=== PATIENT | female | born 1935 | race Hispanic/Latino ===

== ENCOUNTER 2017-01-21 12:06 | Emergency (ER) | payer MEDICARE ==
--- NOTE | 2017-01-21 13:27 | Emergency Department Report ---
HPI - General Chief Complaint: Extremity Problem,Nontraumatic Time Seen by Provider: 01/21/17 12:54 - HPI HPI: This is a 81-year-old female who presents to the emergency department from home by EMS with complaint of right hip pain and right leg pain. This been going on for several weeks if not months but worsened the last few days. The patient lives at home alone, using a cane/walker to get around. However the patient says that lately the pain is so excruciating that she does not want to get up and move around. She has a history of right hip [place]. Patient says that her [id number] took her to see some physician a few weeks ago and she was diagnosed with a stress fracture, but the area is unknown. She takes oxycodone for chronic back pain and has been taking this for hip with some relief. She has appointment with physician on the of this month but she is unsure whether his primary care or an orthopedist. She has a history of arthritis, COPD, hypertension. No recent travel. Denies any recent falls. ED Past Medical Hx - Past Medical History Previous Medical History?: Yes Hx Hypertension: Yes Hx Congestive Heart Failure: No Hx Diabetes: No Hx Renal Disease: No Hx Arthritis: Yes Hx Asthma: No Hx COPD: Yes Hx HIV: No Additional medical history: chronic back pain - Surgical History Past Surgical History?: Yes Hx Pacemaker: No Hx Appendectomy: Yes Additional Surgical History: Back surgery. R hip. Hysterectomy - Social History Smoking Status: Never Smoker Substance Use Type: None - Medications Home Medications: Home Medications Medication Instructions Recorded Confirmed Last Taken Type Aspirin [Aspirin TAB] 325 mg PO QDAY #30 tablet 09/25/16 01/21/17 Unknown Rx Celecoxib [celeBREX] 100 mg PO BID #60 capsule 09/25/16 01/21/17 Unknown Rx amLODIPine [Norvasc] 10 mg PO Q24H #60 tablet 09/25/16 01/21/17 Unknown Rx HYDROcodone/APAP 10-325 [[place] 1 each PO Q6H PRN #15 tablet 12/27/16 01/21/17 Unknown Rx 10-325 mg TAB] ED Review of Systems ROS: Stated complaint: RT HIP PAIN Other details as noted in HPI Comment: All other systems reviewed and negative Constitutional: denies: chills, fever Eyes: denies: eye pain, eye discharge, vision change ENT: denies: ear pain, throat pain Respiratory: denies: cough, shortness of breath, wheezing Cardiovascular: denies: chest pain, palpitations Gastrointestinal: denies: abdominal pain, nausea, diarrhea Genitourinary: denies: urgency, dysuria, discharge Musculoskeletal: arthralgia. denies: back pain Skin: denies: rash, lesions Neurological: denies: headache, weakness, paresthesias Physical Exam - Physical Exam Vital Signs: Vital Signs 01/21/17 01/21/17 01/21/17 12:21 12:30 12:38 Temperature 98.2 F Pulse Rate 70 Respiratory 17 Rate Blood Pressure 187/60 Blood Pressure 187/60 [Right] O2 Sat by Pulse 96 94 96 Oximetry Physical Exam: GENERAL: The patient is well-developed well-nourished. HEENT: Normocephalic. Atraumatic. Extraocular motions are intact. Patient has moist mucous membranes. Pupils equal reactive to light bilaterally. NECK: Supple. Trachea is midline. CHEST/LUNGS: Clear to auscultation. There is no respiratory distress noted. HEART/CARDIOVASCULAR: Regular. There is no tachycardia. There is no gallop rub or murmur. ABDOMEN: Abdomen is soft, nontender. Patient has normal bowel sounds. There is no abdominal distention. SKIN: Warm and dry. NEURO: The patient is awake, alert, and oriented. The patient is cooperative. The patient has no focal neurologic deficits. The patient has normal speech. MUSCULOSKELETAL: Tenderness to palpation to the right lateral thigh and hip but no obvious deformity. There is no limitation range of motion. There is no evidence of acute injury. ED Course Vital Signs 01/21/17 01/21/17 01/21/17 12:21 12:30 12:38 Temperature 98.2 F Pulse Rate 70 Respiratory 17 Rate Blood Pressure 187/60 Blood Pressure 187/60 [Right] O2 Sat by Pulse 96 94 96 Oximetry ED Medical Decision Making - Lab Data Result diagrams: 01/21/17 14:20 01/21/17 14:20 - Radiology Data Radiology results: report reviewed, image reviewed interpreted by me: X-ray of the right hip does not show any fracture, dislocation or any acute process. X-ray right femur does not show any fracture, dislocation or any acute process. Right lower extremity venous Doppler is negative for any signs of DVT. - Medical Decision Making 81-year-old female presents to the emergency department with acute on chronic right hip and upper leg pain. There is been no trauma. Patient lives alone and has been having increased pain with ambulation but has been able to do her ADLs. X-rays were done of the hip and femur as she says there was some recent history of a stress fracture. However the x-rays were read by radiology as well and did not show any fracture, dislocation or any acute process. Patient was checked for a DVT with a right lower extremity venous Doppler that was also negative. Patient's labs were unremarkable and do not show any source or etiology of her discomfort. She was given a dose of pain medication and is feeling improved. The patient already has an appointment with an orthopedist in 8 days. Her rglrzral-[id number] is currently on her way to pick her up from the hospital and help her at home. Patient says she is able to ambulate she does have some discomfort. For these reasons I do not believe the patient requires inpatient admission at this time. She has pain medication at home to take. She will return to the ER with any worsening of her symptoms or any acute distress. - Differential Diagnosis osteoarthritis, DVT, fracture, tendinitis Critical Care Time: No Critical care attestation.: If time is entered above; I have spent that time in minutes in the direct care of this critically ill patient, excluding procedure time. ED Disposition Clinical Impression: Right leg pain, Right hip pain HTN (hypertension) Qualifiers: Hypertension type: essential hypertension Qualified Code(s): I10 - Essential ( primary) hypertension Osteoarthritis Qualifiers: Osteoarthritis location: hip Osteoarthritis type: unspecified Laterality: right Qualified Code(s): M16.11 - Unilateral primary osteoarthritis, right hip Disposition: DISCHARGED TO HOME OR SELFCARE Is pt being admited?: No Condition: Stable Instructions: Hypertension (ED) Additional Instructions: Please follow-up with the orthopedist as previously scheduled. Return to the emergency department with any worsening of your symptoms or any acute distress. Referrals: FRAN CALVO MD [Primary Care Provider] - 3-5 Days JOAQUÍN AUSTIN MD [Staff Physician] - 3-5 Days Time of Disposition: 17:39
--- NOTE | 2017-01-21 14:03 | XRay Report ---
Right femur 2 views. Findings: There are no fractures or other acute findings. A right femoral hip prosthesis is noted in satisfactory position. There is diffuse osteopenia. Impression: No acute findings.
--- NOTE | 2017-01-21 14:04 | XRay Report ---
AP PELVIS: History: Right hip pain. Osteopenia is noted. Right hip prosthesis and lower lumbar fusion changes are unchanged since 12/27/16. There is no evidence for fracture, diastasis or dislocation. The SI joints are symmetric. IMPRESSION: Osteopenia. Stable appearance of the right hip prosthesis. No acute process is noted.
[2017-01-21 15:10] VITALS: BP 161/60
[2017-01-21] MEDS ORDERED: PERCOCET 5/325 ONE (15:13)
[2017-01-21 15:15] LABS: Mean Corpuscular HGB Conc 31 % (30-34); Mean Corpuscular Volume 78 fl (79-97); Platelet Count 251 K/mm3 (140-440); Red Blood Count 4.75 M/mm3 (3.65-5.03); Red Cell Distribution Width 16.1 % (13.2-15.2); White Blood Count 6.8 K/mm3 (4.5-11.0)
[2017-01-21 15:18] LABS: Anion Gap 16 mmol/L; BUN/Creatinine Ratio 17.14; Blood Urea Nitrogen 12 mg/dL (7-17); Calcium 8.6 mg/dL (8.4-10.2); Carbon Dioxide 26 mmol/L (22-30); Chloride 101.6 mmol/L (98-107); Glucose 88 mg/dL (65-100); Potassium 3.8 mmol/L (3.6-5.0); Sodium 140 mmol/L (137-145)
[2017-01-21 15:21] LABS: Hemoglobin 11.3 gm/dl (10.1-14.3); Mean Corpuscular Hemoglobin 24 pg (28-32)
[2017-01-21 15:22] LABS: Basophils % (Auto) 0.8 % (0.0-1.8); Eosinophils % (Auto) 3.1 % (0.0-4.3)
[2017-01-21] MEDS: SUBLIMAZE IV ONE (15:23)
[2017-01-21] MEDS: PERCOCET 5/325 PO ONE (15:25)
--- NOTE | 2017-01-22 08:10 | Vascular Lab Report ---
Right Lower Extremity Venous Duplex Study: Reason for Exam: Right leg pain. Comments on the Right: All veins visualized are freely compressible without evidence of internal echogenicity. Flow is spontaneous and phasic throughout. No evidence of acute or chronic thrombus is seen in any of the vessels visualized. Comments on the Left: A limited duplex study was done of the proximal veins of the left lower extremity. All veins visualized are freely compressible without evidence of internal echogenicity. Flow is spontaneous and phasic throughout. No evidence of acute or chronic thrombus is seen in any of the vessels visualized. Impression: No evidence of acute or chronic deep venous thrombosis in the right lower extremity.
== END 2017-01-21 18:00 | disposition home or self-care (01) ==
LOC: ED 12:06
DX: M16.11 Unilateral primary osteoarthritis, right hip (principal); M79.604 Pain in right leg; I10 Essential (primary) hypertension; J44.9 Chronic obstructive pulmonary disease, unspecified; G89.29 Other chronic pain; Z90.710 Acquired absence of both cervix and uterus; Z90.49 Acquired absence of other specified parts of digestive tract; Z79.82 Long term (current) use of aspirin; Z88.2 Allergy status to sulfonamides; Z88.8 Allergy status to other drugs, medicaments and biological substances
CPT/HCPCS: 36415; 72170; 80048; 82550; 83880; 85025

== ENCOUNTER 2017-01-23 10:04 | Outpatient (CLI) | payer MEDICARE ==
--- NOTE | 2017-01-24 16:06 | Nuclear Medicine Report ---
3 phase bone scan: History: Hip replacement with pain. Following injection of radionuclide flow images demonstrates a mild increased degree of activity to the right hip and proximal femoral region. The initial soft tissue images demonstrates a significant increased amount of activity along the contour of the femoral portion of the prosthesis as well as along the greater trochanter. Three-hour delay images demonstrates an intense degree of bone activity in the same locations along the prosthetic margins and along the superior margin where it enters the femur. Recent plain images however does not demonstrate any evidence of periprosthetic loosening or bone sclerosis. Impressions: Possibilities would include infection and mechanical irritation of the femoral component.
== END 2017-01-23 10:05 | disposition home or self-care (01) ==
LOC: NM 10:04
DX: M84.351A Stress fracture, right femur, initial encounter for fracture (principal); X58.XXXA Exposure to other specified factors, initial encounter; Y93.89 Activity, other specified; Y92.89 Other specified places as the place of occurrence of the external cause; Y99.8 Other external cause status; Z96.641 Presence of right artificial hip joint
CPT/HCPCS: 78315; A9503

== ENCOUNTER 2017-02-04 08:18 | Inpatient (IN) | payer MEDICARE ==
[~2017-02-04 08:18] MED LIST: ACD-A IV ONE; VANCOMYCIN/NS 1 GM/250 ML 1 GM/250 ML BAG IV NR
[2017-02-04] MEDS ORDERED: SUBLIMAZE IV PRN (08:57)
--- NOTE | 2017-02-04 08:59 | Anesthesia Day of Surgery ---
Anesthesia Day of Surgery - Day of Surgery Patient Examined: Yes Patient H&P Reviewed: Yes Patient is NPO: Yes Beta Blockers: Yes Cardiac Clearance: No Pulmonary Clearance: No
[2017-02-04] MEDS ORDERED: PEPCID PO NR (09:00)
[2017-02-04] MEDS ORDERED: NACL 0.9% 1000 ML 1,000 ML IV SCH (09:00)
--- NOTE | 2017-02-04 09:00 | Anesthesia Consultation ---
Anesthesia Consult and Med Hx Date of service: 02/04/17 - Airway Anesthetic Teeth Evaluation: Dentures ROM Head & Neck: Adequate Mental/Hyoid Distance: Adequate Mallampati Class: Class II Intubation Access Assessment: Probably Good - Pulmonary Exam CTA: Yes (distant bs/bl neg wheeze) - Cardiac Exam Cardiac Exam: RRR - Pre-Operative Health Status ASA Pre-Surgery Classification: ASA3 Proposed Anesthetic Plan: Spinal - Pulmonary Hx Smoking: Yes Hx Asthma: No COPD: Yes Hx Pneumonia: Yes - Cardiovascular System Hx Hypertension: Yes Hx Angina: No Hx Pacemaker: No - Central Nervous System Hx Neuromuscular Disorder: Yes (unsteady gait) Hx Back Pain: Yes Hx Psychiatric Problems: No - Gastrointestinal Hx Gastroesophageal Reflux Disease: No - Endocrine Hx Renal Disease: No Hx End Stage Renal Disease: No Hx Insulin Dependent Diabetes: No - Other Systems Hx Alcohol Use: Yes (ROSAS OCCASIONALLY) Hx Substance Use: No
[2017-02-04] MEDS: VERSED IV NR ×2 (10:17→13:30)
[2017-02-04] MEDS ORDERED: SODIUM CHLORIDE FLUSH SYRINGE 10 ML IV PRN (10:51)
[2017-02-04] MEDS ORDERED: DULCOLAX PR PRN (10:51)
[2017-02-04] MEDS ORDERED: ZOFRAN IV PRN (10:51)
[2017-02-04] MEDS ORDERED: TYLENOL PO PRN (10:51)
[2017-02-04] MEDS ORDERED: MILK OF MAGNESIA PO PRN (10:51)
[2017-02-04] MEDS ORDERED: PHENERGAN PR PRN (10:51)
--- NOTE | 2017-02-04 10:51 | Procedure Note ---
Date of procedure: 02/04/17 Pre-op diagnosis: painful bipolar hip repalcement right Post-op diagnosis: same Procedure: Removal of Bipolar hip, conversion to Total Hip replacement, right Anesthesia: NIKAA Surgeon: JOAQUÍN AUSTIN Gas Cutting Machine Operator: FRANCISCO ESCOBAR Estimated blood loss: 50-100ml Pathology: none Specimen disposition: discarded Condition: stable Disposition: floor
[2017-02-04] MEDS ORDERED: XYLOCAINE MPF 2% ONE (10:58)
[2017-02-04] MEDS ORDERED: DIPRIVAN 10 MG/ML IV ONE (10:58)
[2017-02-04] MEDS ORDERED: VERSED ONE (11:05)
[2017-02-04] MEDS ORDERED: ePHEDrine SULFATE ONE (11:28)
[2017-02-04] MEDS ORDERED: NEO SYNEPHRINE/NS Syringe(OR USE) IV ONE (11:38)
[2017-02-04] MEDS ORDERED: NACL 0.9% 1000 ML 1,000 ML ONE (11:41)
[2017-02-04] MEDS ORDERED: TRANEXAMIC ACID IV ONE ×2 (11:50→11:56)
[2017-02-04] MEDS ORDERED: VANCOMYCIN VIAL IV ONE (11:57)
[2017-02-04] MEDS ORDERED: D5/0.45NS 1,000 ML IV SCH (12:00)
--- NOTE | 2017-02-04 12:15 | Post Anesthesia Evaluation ---
- Post Anesthesia Evaluation Patient Participated: Yes Airway Patent: Yes Stable Respiratory Function: Yes Nausea/Vomiting: No Temp > 96.8F: Yes Pain Manageable: Yes Adequeate Hydration: Yes Anesthesia Complications: No Block Receding Appropriately: Not Applicable Patient on Ventilator: No
[2017-02-04] MEDS: DILAUDID IV PRN ×6 (12:25→13:20)
[2017-02-04] MEDS ORDERED: VERSED IV ONE (12:54)
--- NOTE | 2017-02-04 13:55 | Post Anesthesia Evaluation ---
- Post Anesthesia Evaluation Patient Participated: No (resting comfortably) Airway Patent: Yes Stable Respiratory Function: Yes Nausea/Vomiting: No Temp > 96.8F: Yes Pain Manageable: Yes Adequeate Hydration: Yes Anesthesia Complications: No Block Receding Appropriately: Yes Patient on Ventilator: No
[2017-02-04] MEDS: ANCEF/NS 1 GM/50 ML 1 GM/50 ML BAG IV SCH ×2 (14:00→21:57)
[2017-02-04] MEDS: MORPHINE IV PRN ×2 (14:15→18:00)
--- NOTE | 2017-02-04 19:54 | Admit Criteria Form ---
Admission Criteria Documentation: AMBULATORY SURGERY EXCEPTION CRITERIA Ambulatory Surgery Exception Criteria ( Place 'X' for any and all applicable criteria): Surgery or procedure performed on ambulatory basis may require inpatient stay for[A] ANY ONE of the following(1)(2)(3)(4)(5)(6)(7)(8)(9): [X] I. A preoperative situation, condition, or finding that warrants inpatient stay as indicated by ANY ONE of the following: [] a) Inpatient care needed because of severity of a disease or condition rather than the surgery (eg, severe cardiac or respiratory disease, severe infection) (15) (16 ) (17) (18) [] b) Emergent procedure (eg, angioplasty for acute ischemia)(19) [] c) Complex surgical approach or situation as indicated by ANY ONE of the following(3): [] i) Open approach needed instead of usual endoscopic, transcatheter, or other less invasive procedure [] ii) Difficult approach because of previous operation [] iii) Airway monitoring required after open neck procedures(20)(21) [] iv) Large mass requiring unusually extensive dissection [] v) Additional complicating feature requiring inpatient care (eg, drain management)(22(23): [X] d) Major surgery in a pt with high anesthetic risk as indicated by ANY ONE of the following (2)(3)(5)(7)(8): [X] i) ASA risk class III or higher (severe systemic disease impairing function) [D] [] ii) Advanced age (eg, older than 85 years)(14)(24) [] iii) Symptomatic heart failure(25) [] iv) Symptomatic asthma or COPD(8)(21) [] v) Morbid obesity with hemodynamic or respiratory problems(20)( 21)(26)(27) [] vi) Obstructive sleep apnea(20)(21) [] vii) Former premature infants who are younger than 60 weeks [] viii) High risk for severe postoperative abnormalities (eg, severe postoperative hypocalcemia after parathyroidectomy for severe hyperparathyroidism)(27)( 28) [] ix) Unstable angina(25) [] e) Drug-related risk requiring inpatient stay as indicated by ANY ONE of the following(5)(10)(14)(32)(33) [] i) Procedure requires discontinuing drugs or other therapy (eg , antiarrhythmic medication, antiseizure medication), which necessitates inpatient observation or treatment.(18)(31) [] ii) Major surgery and high risk drug use as indicated by ANY ONE of the following: [] 1) Active abuse of cocaine or similar drug [] 2) Monoamine oxidase inhibitor use [] 3) Other drug identified as posing risk [] f) Inadequate outpatient care situation as indicated by ANY ONE of the following(5)(10)(14)(32)(33) [] i) Patient lives remote from medical facility and procedure has urgent complication potential, and temporary nearby residence cannot be arranged [] ii) Patient will have postprocedure incapacitation and inadequate assistance at home, or alternative level of care cannot be arranged. [] iii) Patient will have long general anesthesia or procedure side effect resolution time, and competent person to stay with patient on first postoperative night at home or alternative level of care cannot be arranged. []iv) Other inadequate outpatient situation that cannot be handled by other means [] II. A perioperative event, condition, or finding that warrants inpatient stay as indicated by ANY ONE of the following (1)(2)(3): [] a) Inadequate physiologic recovery: cardiovascular, respiratory, or hemodynamic status not normal or near preoperative baseline(18) [] b) Hemodynamic instability [] c) Patient not alert with near normal or baseline mental status [] d) Temperature not normal or as expected and not appropriate for outpatient treatment of condition [] e) Ambulatory or appropriate activity level status not yet achieved post procedure [E](34)(35)(36) [] f) Operative site not appropriate (eg, unexpected or excessive drainage or bleeding) [] g) Postoperative effects not resolved or adequately managed (eg, significant pain or vomiting not appropriate for outpatient or next level of care)(10)(12) [] h) Complicating features requiring inpatient care as indicated by ANY ONE of the following(37): [] i) Severe complications of procedure (eg, bowel injury, airway compromise, vascular injury,severe hemorrhage) [] ii) Extensive (eg, dissection far beyond usual scope of procedure ) or prolonged (eg, 120 minutes beyond usual) surgery needed requiring inpatient postoperative care [] iii) Conversion to an open or complex procedure that requires inpatient care (eg, open vs laparoscopic cholecystectomy, abdominal vs vaginal hysterectomy)(38) [] iv) Comorbid condition or test result identified during or post procedure that requires inpatient care (7) [] v) Malignant hyperthermia(30) [] vi) Other complicating feature requiring inpatient care(22)(23) Inpatient stay may be needed until ALL of the following are present (1)(2)(3)(4) (5)(6)(10)(14)(33)(40): []a) Physiologic recovery: cardiovascular, respiratory, and hemodynamic status normal or near preoperative baseline []b) Hemodynamic stability []c) Patient alert, with near normal or baseline mental status []d) Temperature appropriate: patient afebrile or temperature appropriate for outpt treatment of condition []e) Activity level appropriate: ambulatory or appropriate activity level post procedure []f) Operative site appropriate as indicated by ALL of the following: []i) Site dry or with expected drainage []ii) Any blood noted is as expected for procedure. []g) Postoperative effects resolved or managed as indicated by ALL of the following: []i) Pain management appropriate for outpatient (or next level of) care(10) []ii) Minimal nausea and vomiting: if present, successfully treated with oral medication(12) []iii) Headache, dizziness, or drowsiness (if present) are mild. []h) Voiding status acceptable as indicated by ANY ONE of the following: []i) Voiding spontaneously []ii) No voiding but instructions given for follow-up in 6 to 8 hours []iii) Urinary catheter in place, and instructions given for follow-up []i) Complicating features requiring inpatient care manageable at a lower level of care(37) []j) Comorbid conditions manageable at a lower level of care(37) The original [employer] content created by [employer] has been revised. The portions of the content which have been revised are identified through the use of italic text or in bold, and [employer] [facility] [employer] has neither reviewed nor approved the modified material. All other unmodified content is copyright [employer]. Please see references footnoted in the original [employer] edition 2016 Admission Criteria Met: Yes
[2017-02-04] MEDS ORDERED: PERCOCET 5/325 PO PRN (20:11)
[2017-02-04] MEDS: COLACE PO SCH (21:18)
[2017-02-05] MEDS: MORPHINE IV PRN (05:22)
--- NOTE | 2017-02-05 07:32 | Operative Report ---
PREOPERATIVE DIAGNOSIS: Painful, failed bipolar arthroplasty, right hip. POSTOPERATIVE DIAGNOSIS: Painful, failed bipolar, arthroplasty, right hip. PROCEDURE: Redo total hip replacement, right hip (conversion of bipolar hip replacement to total hip). SURGEON: Ashlie Pedersen M.D. [employer] ATTENDANT: Abdullahi Dior RN ANESTHESIA: General. COMPLICATIONS: None. BRIEF HISTORY: The patient is an 81-year-old female who has a history of having had a fracture of the hip, femoral neck, status post bipolar arthroplasty. In the postoperative period, the patient has developed persistent discomfort and pain with activity and ambulation. The patient was complaining of pain on the hip that occurs with standing up and progressive weightbearing. Trialing of rest and medications, anti-inflammatories, etc did not help. The patient is being admitted today for exploration of the hip with possibility of a loose hip stent. PROCEDURE IN DETAIL: Once the patient was in the surgical room, a time-out was carried out to identify the patient and procedure, prepping and draping of the patient was done in usual fashion. Once this was done, the patient was placed on her side with her right hip up to allow for exposure of the right lower extremity. Prepping and draping of the patient was done in the usual fashion. Procedure was carried out by making an incision on the posterolateral aspect of the hip over the previous surgical scar that the patient has from her previous surgery. The dissection was carried out without any problems or complications through the subcutaneous tissues. The tensor fascia ebony was exposed along the length of the wound. At this point, the patient had a very large bursa, with serous fluid formation. The area was irrigated and cleaned out. Following this, the patient underwent exposure of the sciatic nerve. Once this was done, a standard posterolateral approach to the hip joint was carried out by making an incision in the posterior aspect of the hip joint, taking down the capsular hip joint to allow full exposure of the hip. Once this was done, measurement of the full length was carried out. Following the above, the procedure was continued but still getting on the hip. At this point, freeing up of the upper portion of the scar tissue around the base of the stem was done. Following that, it was noted that the stem was fully loose. The stent was able to be retrieved without any problem by pulling the stent lateral to the femur. Once this was carried out, attention was carried out to the acetabulum. Retractors were inserted anterior and posterior to the acetabulum, following this acetabulum was cleaned out of tissue. Following the above, reaming of the acetabulum was carried out in a sequential basis to a size 49 mm. This allowed for the insertion of a acetabular shell. The cap was inserted without any problem and fixation of the cap was carried out with a single screw following by the application of a liner. Once the acetabular was in good position, the procedure was continued by reaming of the femur. The femur was reamed by entering the femur with actual reamer, followed by several reamers, and once this was done, the area was irrigated. A femoral plug was placed on the distal aspect of the hip. The trial reduction was carried out to demonstrate length. Once we were satisfied, the trial components were removed. The canal was filled with acrylic cement and a #6, 132 degree neck cement stem was inserted. Once the cement was polymerized, the area was applied and this was reduced into the socket. The patient's hip was stable in flexion, extension, and rotation. The procedure was then terminated. The wound was irrigated with tranexamic acid. Following this, the wound was closed by closing the wound in layers with #1 Vicryl, #5 Mersilene suture to close the capsule. The wound was closed all the way up to skin. The skin closed with skin clips. Compression bandage was applied. The patient tolerated the procedure well. There were no complications. JOB# [id number] JOVANY/LISA HERNANDEZ
--- NOTE | 2017-02-05 09:46 | Progress Note ---
Assessment and Plan - Patient Problems (1) Displaced fracture of right femoral neck Current Visit: No Status: Acute Plan to address problem: Continue with rehabilitation program, DVT prophylaxis. Discharge to SNF/UBRT when medically stable, bed available. Followup in our office on discharge. (2) Narcotic dependence Current Visit: Yes Status: Acute Plan to address problem: She has long history of appeared to his age, and complaints of chronic pain. Recommended been off opioids, pain management with nonnarcotic analgesics. Patient's family is concerned with the narcotic usage, I had a lengthy discussion this regard with family. Subjective Date of service: 02/05/17 Interval history: Status post total hip arthroplasty. Complaints of pain, does not want to get out of bed, Objective Vital signs: Vital Signs - 12hr 02/04/17 02/05/17 02/05/17 22:18 00:36 04:10 Temperature 98.5 F 98.2 F Pulse Rate [ 91 H 84 Left] Respiratory 16 20 20 Rate Blood Pressure 122/62 151/71 [Left Arm] O2 Sat by Pulse 94 96 Oximetry 02/05/17 02/05/17 02/05/17 05:22 05:52 08:00 Temperature 98.1 F Pulse Rate [ 74 Left] Respiratory 20 18 20 Rate Blood Pressure 156/64 [Left Arm] O2 Sat by Pulse 96 Oximetry Narrative Exam: Surgical incision is clean, no drainage, no calf pain or tenderness.
[2017-02-05] MEDS ORDERED: LOVENOX SUB-Q SCH (10:00)
[2017-02-05] MEDS ORDERED: MORPHINE IV PRN ×2 (10:17→12:00)
--- NOTE | 2017-02-05 11:05 | Progress Note ---
Subjective Date of service: 02/05/17 Interval history: 1st POD after hip replacement Patient is in the bed, comfortable. Pain is well controlled with pain meds. No nausea or vomiting. No anesthesia complications Objective - Constitutional Vitals: Vital Signs - 12hr 02/05/17 02/05/17 02/05/17 00:36 04:10 05:22 Temperature 98.5 F 98.2 F Pulse Rate [ 91 H 84 Left] Respiratory 20 20 20 Rate Blood Pressure 122/62 151/71 [Left Arm] O2 Sat by Pulse 94 96 Oximetry 02/05/17 02/05/17 05:52 08:00 Temperature 98.1 F Pulse Rate [ 74 Left] Respiratory 18 20 Rate Blood Pressure 156/64 [Left Arm] O2 Sat by Pulse 96 Oximetry
[2017-02-05] MEDS: COLACE PO SCH ×2 (11:32→21:45)
[2017-02-05] MEDS: THERAGRAN Tab PO SCH (11:33)
[2017-02-05] MEDS ORDERED: ULTRAM PO PRN (12:00)
--- NOTE | 2017-02-05 12:31 | Consultation ---
History of Present Illness - Reason for Consult Consult date: 02/05/17 Requesting physician: REINALDO ROSA - History of Present Illness This is an 81-year-old female who presented with chronic left hip pain to the orthopedist from a previous bipolar hip replacement then need a revision. Patient underwent conversion to total hip replacement. Patient has only significant past medical history of hypertension. Consultation is for medical management. The [id number] reports some difficulty with the patient regarding short-term memory and agitation. Patient has also had periods of extreme agitation with outbursts and behavioral disturbances. No other complaints. No chest pain or shortness of breath. No fever chills. No headache or visual disturbances. Past History Past Medical History: hypertension Past Surgical History: total hip replacement Social history: no significant social history Family history: no significant family history Medications and Allergies Allergies Allergy/AdvReac Type Severity Reaction Status Date / Time codeine Allergy Unknown Verified 12/27/16 17:55 Sulfa (Sulfonamide Allergy Unknown Verified 12/27/16 17:55 Antibiotics) Home Medications Medication Instructions Recorded Confirmed Last Taken Type Aspirin [Aspirin TAB] 325 mg PO QDAY #30 tablet 09/25/16 02/04/17 09/10/16 Rx Celecoxib [celeBREX] 100 mg PO BID #60 capsule 09/25/16 01/29/17 01/07/17 Rx amLODIPine [Norvasc] 10 mg PO Q24H #60 tablet 09/25/16 02/04/17 02/02/17 Rx HYDROcodone/APAP 10-325 [Julian 1 each PO Q6H PRN #15 tablet 12/27/16 02/04/17 04:30 Rx 10-325 mg TAB] Active Meds: Active Medications Acetaminophen (Tylenol) 650 mg PO Q4H PRN PRN Reason: Pain MILD(1-3)/Fever >100.5/MONIQUE Bisacodyl (Dulcolax) 10 mg [place] QDAY PRN PRN Reason: Constip unreliev by MOM/or NPO Celecoxib (Celebrex) 100 mg PO BID [facility] Last Admin: 02/04/17 21:18 Dose: 100 mg Docusate Sodium (Colace) 100 mg PO BID [facility] Last Admin: 02/04/17 21:18 Dose: 100 mg Enoxaparin Sodium (Lovenox) 40 mg SUB-Q QDAY [facility] Sodium Chloride (Nacl 0.9% 1000 Ml) 1,000 mls @ 100 mls/hr IV DIRECT [facility] Last Admin: 02/04/17 09:36 Dose: 100 mls/hr Dextrose/Sodium Chloride (D5/0.45ns) 1,000 mls @ 100 mls/hr IV DIRECT [facility] Ketorolac Tromethamine (Toradol) 30 mg IV Q8H PRN PRN Reason: Pain, Moderate (4-6) Stop: 02/10/17 11:59 Magnesium Hydroxide (Milk Of Magnesia) 30 ml PO Q4H PRN PRN Reason: Constipation Morphine Sulfate (Morphine) 2 mg IV Q4H PRN PRN Reason: Pain , Severe (7-10) Multivitamins (Theragran Tab) 1 each PO QDAY [facility] Ondansetron HCl (Zofran) 4 mg IV Q8H PRN PRN Reason: Nausea And Vomiting Oxycodone/Acetaminophen (Percocet 5/325) 1 tab PO Q6H PRN PRN Reason: Pain, Moderate (4-6) Promethazine HCl (Phenergan) 25 mg OR Q6H PRN PRN Reason: Nausea And Vomiting Sodium Chloride (Sodium Chloride Flush Syringe 10 Ml) 10 ml IV PRN PRN PRN Reason: LINE FLUSH Tramadol HCl (Ultram) 50 mg PO Q6H PRN PRN Reason: Pain, Moderate (4-6) Zolpidem Tartrate (Ambien) 5 mg PO QHS PRN PRN Reason: Sleep Review of Systems All systems: negative Exam - Constitutional Vitals: Temp Pulse Resp BP Pulse Ox 98.1 F 74 20 156/64 96 02/05/17 08:00 02/05/17 08:00 02/05/17 08:00 02/05/17 08:00 02/05/17 08:00 General appearance: Present: no acute distress, well-nourished - EENT Eyes: Present: PERRL ENT: hearing intact, clear oral mucosa - Neck Neck: Present: supple, normal ROM - Respiratory Respiratory effort: normal Respiratory: bilateral: CTA - Cardiovascular Heart Sounds: Present: S1 & S2. Absent: rub, click - Extremities Extremities: pulses symmetrical, No edema Peripheral Pulses: within normal limits - Abdominal General gastrointestinal: Present: soft, non-tender, non-distended, normal bowel sounds Female genitourinary: Present: normal - Integumentary Integumentary: Present: clear, warm, dry - Musculoskeletal Musculoskeletal: gait normal, strength equal bilaterally - Psychiatric Psychiatric: appropriate mood/affect, intact judgment & insight - Neurologic Neurologic: CNII-XII intact, moves all extremities Assessment and Plan 1. Right total hip replacement. Continue PT/OT. Ortho following. 2. Hypertension. Resume Norvasc. 3. 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 We will continue to monitor door hospitalization. Consider psychiatric evaluation.
[2017-02-05] MEDS: PERCOCET 5/325 PO PRN (12:45)
[2017-02-05] MEDS: LOVENOX SUB-Q SCH (17:00)
[2017-02-06] MEDS: AMBIEN PO PRN (01:12)
[2017-02-06] MEDS: PERCOCET 5/325 PO PRN ×3 (01:13→19:53)
[2017-02-06] MEDS ORDERED: APRESOLINE IV PRN (07:34)
--- NOTE | 2017-02-06 08:22 | Discharge Summary ---
Providers - Providers Date of Admission: 02/04/17 08:18 Attending physician: MAYTE CALVO MD 02/04/17 00:01 Consult to Case Management [CONS] Routine Services Needed at Discharge: DME Equipment Other Notified:: cm notified Additional Physician Instructions: Patient request senior living facility Consult to Physician [CONS] Routine Consulting Provider: MARIA D COTE Reason For Exam: for post op medical management Place consult to:: cell phone Notified:: yes Phone number called:: [phone] Was contact made?: Yes If yes, spoke with:: Time called:: 16:10 02/05/17 09:33 Physical Therapy Evaluation and Treat [CONS] Routine Comment: Reason For Exam: hip Eval and treat Primary care physician: DEJA TABOR Hospitalization Condition: Good Disposition: DC/TX SNF W [facility] CERT Core Measure Documentation - Palliative Care Palliative Care/ Comfort Measures: Not Applicable - Core Measures Any of the following diagnoses?: none - VTE Discharge Requirements Deep Vein Thrombosis/Pulmonary Embolism Present on Admission: No Has pt received <5 days of overlap therapy or INR<2.0: No Anticoagulant overlap therapy prescribed at discharge: No - Acute [place] Discharge Requirements Aspirin at discharge: No - Heart Failure Discharge Requirements LISBETH/ARB for LVSD if EF <40%: Not Applicable - Stroke Discharge Requirements Statin for LDL = or >70 mg/dl on DC: Not Applicable Exam - Constitutional Vitals: Temp Pulse Resp BP Pulse Ox 99.0 F 73 16 184/65 94 02/06/17 08:13 02/06/17 08:13 02/06/17 08:13 02/06/17 08:13 02/06/17 08:13 Plan Activity: advance as tolerated Weight Bearing Status: Weight Bear as Tolerated Diet: regular Wound: keep clean and dry Durable Medical Equipment Needed Upon Discharge: Walker-Rolling, Bedside commode -elevated Follow up with: DEJA TABOR MD [Primary Care Provider] - 7 Days Prescriptions: Lisinopril [Zestril TAB] 10 mg PO QDAY #30 tablet
[2017-02-06] MEDS: COLACE PO SCH ×2 (10:55→22:28)
[2017-02-06] MEDS: LOVENOX SUB-Q SCH (10:56)
[2017-02-06] MEDS: THERAGRAN Tab PO SCH (10:56)
--- NOTE | 2017-02-06 12:29 | Progress Note ---
Assessment and Plan Assessment and plan: This is an 81-year-old female who presented with chronic left hip pain to the orthopedist from a previous bipolar hip replacement then need a revision. Patient underwent conversion to total hip replacement. Patient has only significant past medical history of hypertension. Consultation is for medical management. The [id number] reports some difficulty with the patient regarding short-term memory and agitation. Patient has also had periods of extreme agitation with outbursts and behavioral disturbances. No other complaints. No chest pain or shortness of breath. No fever chills. No headache or visual disturbances. 1. Right total hip replacement. Continue PT/OT. Patient reports gas but no bowel movements yet. I discussed with nursing staff to give stool softeners. Patient clinically stable from my standpoint for discharge. 2. Hypertension. Blood pressure mildly elevated this morning noticed Norvasc was not restarted ever started. Discussed with nursing staff will use hydralazine when necessary. No evidence of opioid withdrawal and this time. 3. 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 We will continue to monitor door hospitalization. Consider psychiatric evaluation. 4. Chronic opioid dependence-also input is noted and conversation with patient about opioid dependence. Recommend outpatient detox program. 5. DVT/GI prophylaxis 6. Thank you for allowing us take part in the care of your patient will follow. History Interval history: Follow-up hypertension Patient seen and examined this morning in no acute distress, sleeping but arousble. reports mild pain at the surgical site. reports gas but no BM yet. Denies any chest pain, nausea, vomiting, diarrhea No fever noted. BP elevated, No headache or blurry vision. No adverse events reported to me by nursing staff Hospitalist Physical - Physical exam Narrative exam: VITAL SIGNS: Reviewed. GENERAL: The patient appeared well nourished and normally developed. Vital signs as documented. HEAD: No signs of head trauma. EYES: Pupils are equal. Extraocular motions intact. EARS: Hearing grossly intact. MOUTH: Oropharynx is normal. NECK: No adenopathy, no JVD. CHEST: Chest with clear breath sounds bilaterally. No wheezes, rales, or rhonchi. CARDIAC: Regular rate and rhythm. S1 and S2, without murmurs, gallops, or rubs. VASCULAR: No Edema. Peripheral pulses normal and equal in all extremities. ABDOMEN: Truncal obesity. Hypoactive bowel sounds present. Soft, without detectable tenderness. No sign of distention. No rebound or guarding, and no masses palpated. MUSCULOSKELETAL: Good range of motion of all major joints except limited on the right hip joint area surgical incision is intact and no overt drainage noted.. Extremities without clubbing, cyanosis or edema. NEUROLOGIC EXAM: Alert and oriented x 3. No focal sensory or strength deficits. Speech normal. Follows commands. PSYCHIATRIC: Mood normal. SKIN: Rest on the right hip area. - Constitutional Vitals: Temp Pulse Resp BP Pulse Ox 99.0 F 73 16 184/65 94 02/06/17 08:13 02/06/17 08:13 02/06/17 08:13 02/06/17 08:13 02/06/17 08:13 General appearance: Present: no acute distress, well-nourished Results - Labs Labs: Laboratory Last Values Blood Type O POSITIVE 02/04/17 09:20 Antibody Screen Negative 02/04/17 09:20
[2017-02-06] MEDS: NORVASC PO SCH (14:48)
[2017-02-07] MEDS: PERCOCET 5/325 PO PRN ×4 (03:33→22:12)
[2017-02-07 06:32] LABS: Anion Gap 18 mmol/L; Blood Urea Nitrogen 14 mg/dL (7-17); Carbon Dioxide 22 mmol/L (22-30); Chloride 102.3 mmol/L (98-107); Glucose 101 mg/dL (65-100); Sodium 138 mmol/L (137-145)
--- NOTE | 2017-02-07 07:22 | Progress Note ---
Assessment and Plan Assessment and plan: This is an 81-year-old female who presented with chronic left hip pain to the orthopedist from a previous bipolar hip replacement then need a revision. Patient underwent conversion to total hip replacement. Patient has only significant past medical history of hypertension. Consultation is for medical management. The [id number] reports some difficulty with the patient regarding short-term memory and agitation. Patient has also had periods of extreme agitation with outbursts and behavioral disturbances. No other complaints. No chest pain or shortness of breath. No fever chills. No headache or visual disturbances. 1. Right total hip replacement. Continue PT/OT. Patient reports gas but no bowel movements yet. I discussed with nursing staff to give stool softeners. Patient clinically stable from my standpoint for discharge. 2. Hypertension. Still elevated. Added low dose acei. continue norvasc. Discussed with nursing staff will use hydralazine when necessary. No evidence of opioid withdrawal and this time. 3. 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 We will continue to monitor door hospitalization. Consider psychiatric evaluation. 4. Chronic opioid dependence-also input is noted and conversation with patient about opioid dependence. Recommend outpatient detox program. 5. Pyschosis- Patient very agitated and verbally abusive to family. Likely due to Dementia. Family requesting psych eval. 6. DVT/GI prophylaxis 7. Thank you for allowing us take part in the care of your patient will follow. History Interval history: Follow-up hypertension Patient seen and examined this morning in no acute distress, Denies any chest pain, nausea, vomiting, diarrhea No fever noted. BP elevated, No headache or blurry vision. No adverse events reported to me by nursing staff Hospitalist Physical - Physical exam Narrative exam: VITAL SIGNS: Reviewed. GENERAL: The patient appeared well nourished and normally developed. Vital signs as documented. HEAD: No signs of head trauma. EYES: Pupils are equal. Extraocular motions intact. EARS: Hearing grossly intact. MOUTH: Oropharynx is normal. NECK: No adenopathy, no JVD. CHEST: Chest with clear breath sounds bilaterally. No wheezes, rales, or rhonchi. CARDIAC: Regular rate and rhythm. S1 and S2, without murmurs, gallops, or rubs. VASCULAR: No Edema. Peripheral pulses normal and equal in all extremities. ABDOMEN: Truncal obesity. Hypoactive bowel sounds persist. Soft, without detectable tenderness. No sign of distention. No rebound or guarding, and no masses palpated. MUSCULOSKELETAL: Good range of motion of all major joints except limited on the right hip joint area surgical incision is intact and no overt drainage noted.. Extremities without clubbing, cyanosis or edema. NEUROLOGIC EXAM: Alert and oriented x 3. No focal sensory or strength deficits. Speech normal. Follows commands. PSYCHIATRIC: Mood normal. SKIN: Rest on the right hip area. - Constitutional Vitals: Temp Pulse Resp BP Pulse Ox 98.1 F 81 20 182/69 93 02/06/17 22:39 02/06/17 22:39 02/07/17 03:33 02/06/17 22:39 02/06/17 22:39 General appearance: Present: no acute distress, well-nourished Results - Labs CBC & Chem 7: 02/07/17 05:31 Labs: Laboratory Last Values Sodium 138 mmol/L (137-145) 02/07/17 05:31 Potassium 4.0 mmol/L (3.6-5.0) 02/07/17 05:31 Chloride 102.3 mmol/L (98-107) 02/07/17 05:31 Carbon Dioxide 22 mmol/L (22-30) 02/07/17 05:31 Anion Gap 18 mmol/L 02/07/17 05:31 BUN 14 mg/dL (7-17) 02/07/17 05:31 Creatinine 0.5 mg/dL (0.7-1.2) L 02/07/17 05:31 Estimated GFR > 60 ml/min 02/07/17 05:31 BUN/Creatinine Ratio 28.00 % 02/07/17 05:31 Glucose 101 mg/dL (65-100) H 02/07/17 05:31 POC Glucose 148 (70-105) H 02/06/17 22:16 Calcium 8.0 mg/dL (8.4-10.2) L 02/07/17 05:31 Blood Type O POSITIVE 02/04/17 09:20 Antibody Screen Negative 02/04/17 09:20
[2017-02-07] MEDS: THERAGRAN Tab PO SCH (09:42)
[2017-02-07] MEDS: ZESTRIL PO SCH (09:43)
[2017-02-07] MEDS: COLACE PO SCH ×2 (09:43→22:12)
[2017-02-07] MEDS: LOVENOX SUB-Q SCH (09:44)
[2017-02-07] MEDS: TORADOL IV PRN ×2 (13:15→19:18)
--- NOTE | 2017-02-07 13:43 | Progress Note ---
Assessment and Plan - Patient Problems (1) Displaced fracture of right femoral neck Current Visit: No Status: Acute Plan to address problem: Continue with rehabilitation program, DVT prophylaxis. Discharge to SNF/[facility] when medically stable, bed available. Followup in our office on discharge. (2) Narcotic dependence Current Visit: Yes Status: Acute Plan to address problem: She has long history of appeared to his age, and complaints of chronic pain. Recommended been off opioids, pain management with nonnarcotic analgesics. Patient's family is concerned with the narcotic usage, I had a lengthy discussion this regard with family. Subjective Date of service: 02/07/17 Interval history: Status post total hip arthroplasty. Complaints of pain, does not want to get out of bed, Objective Vital signs: Vital Signs - 12hr 02/07/17 02/07/17 03:33 07:00 Temperature 98.1 F Pulse Rate [ 72 Left] Respiratory 20 18 Rate Blood Pressure 176/65 [Left Arm] O2 Sat by Pulse 98 Oximetry - Labs CBC & BMP: 02/07/17 05:31 Labs: Abnormal lab results 02/06/17 02/06/17 02/07/17 Range/Units 16:12 22:16 05:31 Creatinine 0.5 L (0.7-1.2) mg/dL Glucose 101 H (65-100) mg/dL POC Glucose 146 H 148 H (70-105) Calcium 8.0 L (8.4-10.2) mg/dL 02/07/17 Range/Units 08:04 Creatinine (0.7-1.2) mg/dL Glucose (65-100) mg/dL POC Glucose 107 H (70-105) Calcium (8.4-10.2) mg/dL
[2017-02-07] MEDS: NORVASC PO SCH (16:00)
--- NOTE | 2017-02-07 23:40 | Consultation ---
History of Present Illness - Reason for Consult Reason for consult: psych consult - Chief Complaint Chief complaint: CC:"broke my hip" 81 year old WF who originally presented to [facility] for a broken hip and subsequent surgery. We have been asked to evaluate for her memory, agitation, and depression. Patient notes that she is depressed but only because of being in the hospital and the request to leave and return home as soon as possible. The patient notes that she feels she can receive care at home - she noted that with a walker she can care for self. She denies any SI/HI/AH/ VH. She denies any issues with focus, energy, sleep, appeitite, and hopeless feelings. She doesn't feel she has any mental health issues that require any particular help. She denies any psychosis or euphoria. She feels that she is able to care for herself. Collateral information from the family note that the patient has had a long history of a slow decline from a standpoint of memory issues and self care issues. They have had to get involved with her care more frequently as of late secondary to concern over her ability to take care of finances (her spending money on home shopping networks and buying multiple items already purchased). They note that when the patient wants something she can resort to manipulative behaviors that can include wanting to harm herself unless they help her. However she has no history of following though with those 'threats'. She tends to easily forget multiple things but then can show very few symptoms of memory problems other times. She has been noncompliant with treatment recs after multiple hospitalizations and may be using her pain meds to self medicate. Medications and Allergies Allergies Allergy/AdvReac Type Severity Reaction Status Date / Time codeine Allergy Unknown Verified 12/27/16 17:55 Sulfa (Sulfonamide Allergy Unknown Verified 12/27/16 17:55 Antibiotics) Home Medications Medication Instructions Recorded Confirmed Last Taken Type Aspirin [Aspirin TAB] 325 mg PO QDAY #30 tablet 09/25/16 02/04/17 09/10/16 Rx Celecoxib [celeBREX] 100 mg PO BID #60 capsule 09/25/16 01/29/17 01/07/17 Rx amLODIPine [Norvasc] 10 mg PO Q24H #60 tablet 09/25/16 02/04/17 02/02/17 Rx HYDROcodone/APAP 10-325 [Mcdonough 1 each PO Q6H PRN #15 tablet 12/27/16 02/04/17 04:30 Rx 10-325 mg TAB] Lisinopril [Zestril TAB] 10 mg PO QDAY #30 tablet 02/07/17 Unknown Rx Active Meds: Active Medications Acetaminophen (Tylenol) 650 mg PO Q4H PRN PRN Reason: Pain MILD(1-3)/Fever >100.5/MONIQUE Amlodipine Besylate (Norvasc) 10 mg PO Q24H [facility] Last Admin: 02/07/17 16:00 Dose: 10 mg Bisacodyl (Dulcolax) 10 mg [place] QDAY PRN PRN Reason: Constip unreliev by MOM/or NPO Celecoxib (Celebrex) 100 mg PO BID [facility] Last Admin: 02/07/17 22:12 Dose: 100 mg Docusate Sodium (Colace) 100 mg PO BID [facility] Last Admin: 02/07/17 22:12 Dose: 100 mg Enoxaparin Sodium (Lovenox) 40 mg SUB-Q QDAY@1000 [facility] Hydralazine HCl (Apresoline) 10 mg IV Q4HR PRN PRN Reason: Hypertension Sodium Chloride (Nacl 0.9% 1000 Ml) 1,000 mls @ 100 mls/hr IV DIRECT [facility] Last Admin: 02/04/17 09:36 Dose: 100 mls/hr Dextrose/Sodium Chloride (D5/0.45ns) 1,000 mls @ 100 mls/hr IV DIRECT [facility] Ketorolac Tromethamine (Toradol) 30 mg IV Q8H PRN PRN Reason: Pain, Moderate (4-6) Stop: 02/10/17 11:59 Last Admin: 02/07/17 19:18 Dose: 30 mg Lisinopril (Zestril) 10 mg PO QDAY [facility] Last Admin: 02/07/17 09:43 Dose: 10 mg Magnesium Hydroxide (Milk Of Magnesia) 30 ml PO Q4H PRN PRN Reason: Constipation Morphine Sulfate (Morphine) 2 mg IV Q4H PRN PRN Reason: Pain , Severe (7-10) Last Admin: 02/05/17 19:39 Dose: 2 mg Multivitamins (Theragran Tab) 1 each PO QDAY [facility] Last Admin: 02/07/17 09:42 Dose: 1 each Ondansetron HCl (Zofran) 4 mg IV Q8H PRN PRN Reason: Nausea And Vomiting Oxycodone/Acetaminophen (Percocet 5/325) 1 tab PO Q6H PRN PRN Reason: Pain, Moderate (4-6) Last Admin: 02/07/17 22:12 Dose: 1 tab Promethazine HCl (Phenergan) 25 mg [place] Q6H PRN PRN Reason: Nausea And Vomiting Sodium Chloride (Sodium Chloride Flush Syringe 10 Ml) 10 ml IV PRN PRN PRN Reason: LINE FLUSH Tramadol HCl (Ultram) 50 mg PO Q6H PRN PRN Reason: Pain, Moderate (4-6) Zolpidem Tartrate (Ambien) 5 mg PO QHS PRN PRN Reason: Sleep Last Admin: 02/06/17 01:12 Dose: 5 mg Past psychiatric history - Past Medical History Past Medical History: COPD Past Surgical History: Other (hip replacement) - past Psychiatric treatment and history psychiatric treatment history: inpt, outpt, - none no psych meds, no family history of psych Patient denies any substance abuse history nor abusing her pain pills - Social History Social history: other (lives at home by self, has frequent support of step-son' s 's support, not working, step children but no biological) Mental Status Exam - Vital signs Last Vital Signs Temp 98.1 F 02/07/17 16:00 Pulse 76 02/07/17 16:00 Resp 18 02/07/17 16:00 BP 130/69 02/07/17 16:00 Pulse Ox 96 02/07/17 16:00 - Exam Orientation: place, person Affect: normal Mood: appropriate Thought Process: Intact Perceptions: none Speech: normal rate and pattern Concentration: focused Motor activity: normal Level of consciousness: alert Interaction: cooperative (spelled WORLD backwardds correctly, named presidents Trump, Obama, Saul backwards, repeat three words (1/3) correctly.), other Results Result Diagrams: 02/07/17 05:31 Abnormal lab results 02/07/17 02/07/17 02/07/17 Range/Units 05:31 08:04 16:50 Creatinine 0.5 L (0.7-1.2) mg/dL Glucose 101 H (65-100) mg/dL POC Glucose 107 H 108 H (70-105) Calcium 8.0 L (8.4-10.2) mg/dL All other labs normal. Assessment and Plan Assessment and plan: 81 year old WF who originally presented to [facility] for a broken hip and subsequent surgery. We have been asked to evaluate for her memory, agitation, and depression. depression/anxiety: much of this may have begun from not appropriately dealing with loss of since and transitioning to utilizing her stepson's as her main support system. Over time it seems that she's relied on this support from an emotional standpoint. Furthermore, with the recent physical issues, the patient has had difficulty dealing with decompensation related to her physical body. She may be utilizing pain opiates as a way to self medicate. Also she has a stubborn personality per the family, which now plays a strong role in her resistance towards treatment. This also inhibits her from trying to help herself and accepting support apart from her family who may have been enabling her for years. This is now problematic as her needs outweigh what the family can support (mostly emotionally). The patient has not been managing her money appropriately leading to the family becoming power of employment attorney. At this time her behaviors are loco to older age and wanting to be self reliant in an lifestyle where she's become used to support from the family. Her personality is also preventing from accepting the help from others including therapy and follow up care. However family is aware that they may have to start making decision such as a fdc or CUSTODIAL. As of now I don't recommend any particular medication to help with this particular situation. memory: would rec a follow up with neurology to follow memory as it's not consistently problematic. may utilize aricept though.
[2017-02-08] MEDS: AMBIEN PO PRN (01:20)
[2017-02-08] MEDS: TORADOL IV PRN ×3 (04:37→20:37)
[2017-02-08] MEDS: PERCOCET 5/325 PO PRN (08:46)
[2017-02-08] MEDS: LOVENOX SUB-Q SCH (09:34)
[2017-02-08] MEDS: ZESTRIL PO SCH (09:35)
[2017-02-08] MEDS: COLACE PO SCH ×2 (09:35→22:50)
[2017-02-08] MEDS: THERAGRAN Tab PO SCH (09:35)
[2017-02-08] MEDS ORDERED: MORPHINE IV PRN (11:58)
--- NOTE | 2017-02-08 12:55 | Progress Note ---
Assessment and Plan Assessment and plan: This is an 81-year-old female who presented with chronic left hip pain to the orthopedist from a previous bipolar hip replacement then need a revision. Patient underwent conversion to total hip replacement. Patient has only significant past medical history of hypertension. Consultation is for medical management. The [id number] reports some difficulty with the patient regarding short-term memory and agitation. Patient has also had periods of extreme agitation with outbursts and behavioral disturbances. No other complaints. No chest pain or shortness of breath. No fever chills. No headache or visual disturbances. 1. Right total hip replacement. Continue PT/OT. Patient reports good bowel movements yesterday. Has been ambulating with walker.. I discussed with nursing staff to give stool softeners. Patient clinically stable from my standpoint for discharge. 2. Hypertension. Still elevated. Added low dose acei. continue norvasc. Discussed with nursing staff will use hydralazine when necessary. No evidence of opioid withdrawal and this time. 3. 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 We will continue to monitor door hospitalization. Right input is noted.. 4. Chronic opioid dependence-also input is noted and conversation with patient about opioid dependence. Recommend outpatient detox program. 5. Pyschosis- Patient very agitated and verbally abusive to family. Likely due to Dementia. Psych input noted. pending placement 6. DVT/GI prophylaxis 7. Thank you for allowing us take part in the care of your patient will follow. History Interval history: Follow-up hypertension Patient seen and examined this morning in no acute distress, 'I just want to go home" Denies any chest pain, nausea, vomiting, diarrhea No fever noted. BP elevated, No headache or blurry vision. No adverse events reported to me by nursing staff Hospitalist Physical - Physical exam Narrative exam: VITAL SIGNS: Reviewed. GENERAL: The patient appeared well nourished and normally developed. Vital signs as documented. HEAD: No signs of head trauma. EYES: Pupils are equal. Extraocular motions intact. EARS: Hearing grossly intact. MOUTH: Oropharynx is normal. NECK: No adenopathy, no JVD. CHEST: Chest with clear breath sounds bilaterally. No wheezes, rales, or rhonchi. CARDIAC: Regular rate and rhythm. S1 and S2, without murmurs, gallops, or rubs. VASCULAR: No Edema. Peripheral pulses normal and equal in all extremities. ABDOMEN: Truncal obesity. Bowel sounds normal. Soft, without detectable tenderness. No sign of distention. No rebound or guarding, and no masses palpated. MUSCULOSKELETAL: Good range of motion of all major joints except limited on the right hip joint area surgical incision is intact and no overt drainage noted.. Extremities without clubbing, cyanosis or edema. NEUROLOGIC EXAM: Alert and oriented x 3. No focal sensory or strength deficits. Speech normal. Follows commands. PSYCHIATRIC: Mood normal. SKIN: Rest on the right hip area. - Constitutional Vitals: Temp Pulse Resp BP Pulse Ox 98.1 F 70 20 134/61 96 02/08/17 11:40 02/08/17 11:40 02/08/17 12:15 02/08/17 11:40 02/08/17 11:40 General appearance: Present: no acute distress, well-nourished Results - Labs CBC & Chem 7: 02/07/17 05:31 Labs: Laboratory Last Values Sodium 138 mmol/L (137-145) 02/07/17 05:31 Potassium 4.0 mmol/L (3.6-5.0) 02/07/17 05:31 Chloride 102.3 mmol/L (98-107) 02/07/17 05:31 Carbon Dioxide 22 mmol/L (22-30) 02/07/17 05:31 Anion Gap 18 mmol/L 02/07/17 05:31 BUN 14 mg/dL (7-17) 02/07/17 05:31 Creatinine 0.5 mg/dL (0.7-1.2) L 02/07/17 05:31 Estimated GFR > 60 ml/min 02/07/17 05:31 BUN/Creatinine Ratio 28.00 % 02/07/17 05:31 Glucose 101 mg/dL (65-100) H 02/07/17 05:31 POC Glucose 108 (70-105) H 02/07/17 16:50 Calcium 8.0 mg/dL (8.4-10.2) L 02/07/17 05:31 Blood Type O POSITIVE 02/04/17 09:20 Antibody Screen Negative 02/04/17 09:20
[2017-02-08] MEDS: ULTRAM PO PRN ×2 (13:30→18:35)
[2017-02-08] MEDS: NORVASC PO SCH (13:30)
--- NOTE | 2017-02-08 18:24 | Progress Note ---
Subjective - Reason for Consult Reason for consult: psych management - Chief Complaint Chief complaint: CC:"broke my hip" 81 year old GEOVANY who originally presented to [facility] for a broken hip and subsequent surgery. We have been asked to evaluate for her memory, agitation, and depression. Today patient notes that she isn't depressed. She was engaging and smiling during our interview. She denies any SI/HI/AH/VH. She was able to get up and work on ambulation with the staff. She denies any issues with sleep or focus. Her main concern involves wanting some pain relief - opiates. He memory continues to be stable- AAOx3, spelling WORLD backwards correctly, naming Presidents backwards and remembering our conversation yesterday. Mental Status Exam - Vital signs Last Vital Signs Temp 98.1 F 02/08/17 11:40 Pulse 76 02/08/17 13:30 Resp 20 02/08/17 14:30 BP 138/80 02/08/17 13:30 Pulse Ox 96 02/08/17 11:40 - Exam Orientation: time, place, person Affect: normal Mood: appropriate Thought Process: Intact Perceptions: none Speech: normal rate and pattern Concentration: focused Motor activity: normal Level of consciousness: alert Memory: Intact Interaction: cooperative Assessment and Plan 81 year old GEOVANY who originally presented to [facility] for a broken hip and subsequent surgery. We have been asked to evaluate for her memory, agitation, and depression. Nursing staff notes no significant concerns over her behavior or memory at this time. depression/anxiety: no changes to management for this patient memory: would rec a follow up with neurology to follow memory as it's not consistently problematic. If the memory stays stable I will be inclined to think that a large part of the family's interaction and concern over her memory and behaviors may be explained by the opiate use- her cognition may have been "altered" by this drug. Will follow to see if memory or behaviors change now that transition off the opiate is being made.
[2017-02-09] MEDS: AMBIEN PO PRN (01:09)
[2017-02-09] MEDS: ULTRAM PO PRN ×4 (01:09→20:40)
[2017-02-09] MEDS: TORADOL IV PRN ×2 (07:38→15:32)
[2017-02-09] MEDS: LOVENOX SUB-Q SCH (09:49)
[2017-02-09] MEDS: THERAGRAN Tab PO SCH (09:49)
[2017-02-09] MEDS: ZESTRIL PO SCH (09:50)
[2017-02-09] MEDS: COLACE PO SCH ×2 (09:50→21:23)
--- NOTE | 2017-02-09 12:57 | Progress Note ---
Assessment and Plan Assessment and plan: This is an 81-year-old female who presented with chronic left hip pain to the orthopedist from a previous bipolar hip replacement then need a revision. Patient underwent conversion to total hip replacement. Patient has only significant past medical history of hypertension. Consultation is for medical management. The [id number] reports some difficulty with the patient regarding short-term memory and agitation. Patient has also had periods of extreme agitation with outbursts and behavioral disturbances. No other complaints. No chest pain or shortness of breath. No fever chills. No headache or visual disturbances. 1. Right total hip replacement. Continue PT/OT. Patient reports, continues to have bm. Has been ambulating with walker.. Patient clinically stable from my standpoint for discharge. 2. Hypertension. improved with addition of low dose acei. continue norvasc. Discussed with nursing staff will use hydralazine when necessary. No evidence of opioid withdrawal and this time. 3. 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 We will continue to monitor door hospitalization. Pysch input is noted. 4. Chronic opioid dependence-also input is noted and conversation with patient about opioid dependence. Recommend outpatient detox program. 5. Pyschosis- Patient very agitated and verbally abusive to family. Likely due to Dementia. Psych input noted. pending placement 6. DVT/GI prophylaxis 7. Thank you for allowing us take part in the care of your patient will follow. History Interval history: Follow-up hypertension Patient seen and examined this morning in no acute distress, no new complaints Denies any chest pain, nausea, vomiting, diarrhea No fever noted. BP elevated, No headache or blurry vision. No adverse events reported to me by nursing staff Hospitalist Physical - Physical exam Narrative exam: VITAL SIGNS: Reviewed. GENERAL: The patient appeared well nourished and normally developed. Vital signs as documented. HEAD: No signs of head trauma. EYES: Pupils are equal. Extraocular motions intact. EARS: Hearing grossly intact. MOUTH: Oropharynx is normal. NECK: No adenopathy, no JVD. CHEST: Chest with clear breath sounds bilaterally. No wheezes, rales, or rhonchi. CARDIAC: Regular rate and rhythm. S1 and S2, without murmurs, gallops, or rubs. VASCULAR: No Edema. Peripheral pulses normal and equal in all extremities. ABDOMEN: Truncal obesity. Bowel sounds normal. Soft, without detectable tenderness. No sign of distention. No rebound or guarding, and no masses palpated. MUSCULOSKELETAL: Good range of motion of all major joints except limited on the right hip joint area surgical incision is intact and no overt drainage noted.. Extremities without clubbing, cyanosis or edema. NEUROLOGIC EXAM: Alert and oriented x 3. No focal sensory or strength deficits. Speech normal. Follows commands. PSYCHIATRIC: Mood normal. SKIN: Rest on the right hip area. - Constitutional Vitals: Temp Pulse Resp BP Pulse Ox 98.5 F 78 20 154/64 94 02/09/17 09:37 02/09/17 09:50 02/09/17 09:50 02/09/17 09:50 02/09/17 09:37 General appearance: Present: no acute distress, well-nourished Results - Labs CBC & Chem 7: 02/07/17 05:31 Labs: Laboratory Last Values Sodium 138 mmol/L (137-145) 02/07/17 05:31 Potassium 4.0 mmol/L (3.6-5.0) 02/07/17 05:31 Chloride 102.3 mmol/L (98-107) 02/07/17 05:31 Carbon Dioxide 22 mmol/L (22-30) 02/07/17 05:31 Anion Gap 18 mmol/L 02/07/17 05:31 BUN 14 mg/dL (7-17) 02/07/17 05:31 Creatinine 0.5 mg/dL (0.7-1.2) L 02/07/17 05:31 Estimated GFR > 60 ml/min 02/07/17 05:31 BUN/Creatinine Ratio 28.00 % 02/07/17 05:31 Glucose 101 mg/dL (65-100) H 02/07/17 05:31 POC Glucose 108 (70-105) H 02/07/17 16:50 Calcium 8.0 mg/dL (8.4-10.2) L 02/07/17 05:31 Blood Type O POSITIVE 02/04/17 09:20 Antibody Screen Negative 02/04/17 09:20
[2017-02-09] MEDS: PROTONIX PO SCH (13:34)
[2017-02-09] MEDS: NORVASC PO SCH (13:34)
--- NOTE | 2017-02-09 19:55 | Progress Note ---
Subjective - Reason for Consult Reason for consult: psych management - Chief Complaint Chief complaint: CC:"broke my hip" 81 year old GEOVANY who originally presented to [facility] for a broken hip and subsequent surgery. We have been asked to evaluate for her memory, agitation, and depression. Today patient continues to note that she is only depressed of remaining in the hospital. She feels that she is fine otherwise. She denies any SI/HI/AH/VH. Her memory remains constant. She denies any issues with her surgery and had ambulated with PT yesterday. She made no note to me of wanting pain meds- however nursing does note that she continues wanting pain relief. Patient is AAO x 3. Mental Status Exam - Vital signs Last Vital Signs Temp 98.5 F 02/09/17 09:37 Pulse 76 02/09/17 13:34 Resp 20 02/09/17 16:02 BP 136/68 02/09/17 13:34 Pulse Ox 94 02/09/17 09:37 - Exam Orientation: time, place, person Affect: normal Mood: other (depressed in hospital) Thought Process: Intact Perceptions: none Speech: normal rate and pattern Concentration: focused Motor activity: normal Level of consciousness: alert Memory: Intact Interaction: cooperative Assessment and Plan 81 year old GEOVANY who originally presented to [facility] for a broken hip and subsequent surgery. We have been asked to evaluate for her memory, agitation, and depression. Nursing staff notes no significant concerns over her behavior or memory at this time. depression/anxiety: no changes to management for this patient memory: Patient's memory doesn't seem an issue at this time- I see no evidence of Alzheimer's and feel that the family's concern over her memory was a result of opiate use- now that she is off opiates her cognition seems appropriate for an 81 year old.
--- NOTE | 2017-02-09 19:56 | Progress Note ---
Assessment and Plan S/P conversion to THR Appreciate Psych evaluation. Wound Ok Waiting for placement./; Subjective Date of service: 02/09/17 Objective Vital signs: Vital Signs - 12hr 02/09/17 02/09/17 02/09/17 08:08 08:37 09:37 Temperature 98.5 F Pulse Rate Pulse Rate [ 78 Left] Respiratory 20 20 20 Rate Blood Pressure Blood Pressure 154/64 [Left Arm] O2 Sat by Pulse 94 Oximetry 02/09/17 02/09/17 02/09/17 09:49 09:50 10:49 Temperature Pulse Rate 78 Pulse Rate [ Left] Respiratory 20 20 20 Rate Blood Pressure 154/64 Blood Pressure [Left Arm] O2 Sat by Pulse Oximetry 02/09/17 02/09/17 02/09/17 10:50 13:34 14:34 Temperature Pulse Rate 76 Pulse Rate [ Left] Respiratory 20 20 20 Rate Blood Pressure 136/68 Blood Pressure [Left Arm] O2 Sat by Pulse Oximetry 02/09/17 02/09/17 15:32 16:02 Temperature Pulse Rate Pulse Rate [ Left] Respiratory 20 20 Rate Blood Pressure Blood Pressure [Left Arm] O2 Sat by Pulse Oximetry - Labs CBC & BMP: 02/07/17 05:31
[2017-02-10] MEDS: TORADOL IV PRN (00:22)
[2017-02-10] MEDS: ULTRAM PO PRN ×2 (05:41→13:15)
[2017-02-10] MEDS: ZESTRIL PO SCH (11:16)
[2017-02-10] MEDS: COLACE PO SCH (11:16)
[2017-02-10] MEDS: THERAGRAN Tab PO SCH (11:17)
[2017-02-10] MEDS: PROTONIX PO SCH (11:17)
--- NOTE | 2017-02-10 12:21 | Progress Note ---
Assessment and Plan Assessment and plan: This is an 81-year-old female who presented with chronic left hip pain to the orthopedist from a previous bipolar hip replacement then need a revision. Patient underwent conversion to total hip replacement. Patient has only significant past medical history of hypertension. Consultation is for medical management. The [id number] reports some difficulty with the patient regarding short-term memory and agitation. Patient has also had periods of extreme agitation with outbursts and behavioral disturbances. No other complaints. No chest pain or shortness of breath. No fever chills. No headache or visual disturbances. 1. Right total hip replacement. Continue PT/OT. Patient reports, awaiting placement Has been ambulating with walker.. Patient clinically stable from my standpoint for discharge. 2. Hypertension. improved with addition of low dose acei. continue norvasc. Discussed with nursing staff will use hydralazine when necessary. No evidence of opioid withdrawal and this time. 3. 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 We will continue to monitor door hospitalization. Pysch input is noted. 4. Chronic opioid dependence-also input is noted and conversation with patient about opioid dependence. Recommend outpatient detox program. 5. Pyschosis- Patient very agitated and verbally abusive to family. Likely due to Dementia. Psych input noted. pending placement 6. DVT/GI prophylaxis 7. Thank you for allowing us take part in the care of your patient will follow. History Interval history: No new complaints. Awaiting placement. noted BM. no new complaints from nursing staff Hospitalist Physical - Physical exam Narrative exam: VITAL SIGNS: Reviewed. GENERAL: The patient appeared well nourished and normally developed. Vital signs as documented. HEAD: No signs of head trauma. EYES: Pupils are equal. Extraocular motions intact. EARS: Hearing grossly intact. MOUTH: Oropharynx is normal. NECK: No adenopathy, no JVD. CHEST: Chest with clear breath sounds bilaterally. No wheezes, rales, or rhonchi. CARDIAC: Regular rate and rhythm. S1 and S2, without murmurs, gallops, or rubs. VASCULAR: No Edema. Peripheral pulses normal and equal in all extremities. ABDOMEN: Truncal obesity. Bowel sounds normal. Soft, without detectable tenderness. No sign of distention. No rebound or guarding, and no masses palpated. MUSCULOSKELETAL: Good range of motion of all major joints except limited on the right hip joint area surgical incision is intact and no overt drainage noted.. Extremities without clubbing, cyanosis or edema. NEUROLOGIC EXAM: Alert and oriented x 3. No focal sensory or strength deficits. Speech normal. Follows commands. PSYCHIATRIC: Mood normal. SKIN: Rest on the right hip area. - Constitutional Vitals: Temp Pulse Resp BP Pulse Ox 98.6 F 72 18 139/56 95 02/10/17 08:17 02/10/17 08:17 02/10/17 08:17 02/10/17 08:17 02/10/17 08:17 General appearance: Present: no acute distress, well-nourished Results - Labs CBC & Chem 7: 02/07/17 05:31 Labs: Laboratory Last Values Sodium 138 mmol/L (137-145) 02/07/17 05:31 Potassium 4.0 mmol/L (3.6-5.0) 02/07/17 05:31 Chloride 102.3 mmol/L (98-107) 02/07/17 05:31 Carbon Dioxide 22 mmol/L (22-30) 02/07/17 05:31 Anion Gap 18 mmol/L 02/07/17 05:31 BUN 14 mg/dL (7-17) 02/07/17 05:31 Creatinine 0.5 mg/dL (0.7-1.2) L 02/07/17 05:31 Estimated GFR > 60 ml/min 02/07/17 05:31 BUN/Creatinine Ratio 28.00 % 02/07/17 05:31 Glucose 101 mg/dL (65-100) H 02/07/17 05:31 POC Glucose 108 (70-105) H 02/07/17 16:50 Calcium 8.0 mg/dL (8.4-10.2) L 02/07/17 05:31 Blood Type O POSITIVE 02/04/17 09:20 Antibody Screen Negative 02/04/17 09:20
[2017-02-10] MEDS: NORVASC PO SCH (13:15)
[2017-02-10] MEDS: LOVENOX SUB-Q SCH (13:27)
--- NOTE | 2017-02-10 14:41 | Progress Note ---
Subjective - Reason for Consult Consult date: 02/10/17 Reason for consult: Psychiatry Follow-Up - Chief Complaint Chief complaint: 81 y.o. GEOVANY who originally presented to [facility] for a broken hip and subsequent surgery. We have been asked to evaluate for her memory, agitation, and depression. Today patient was adamant about being discharge home, not to a SNF. I assessed her short term memory and she was able to spell WORLD backward. Also, she remembered the three numbers that was given to her to recall after 5 mins (3, 5, 9). She denied being depressed, SI/HI's or AVH's at this time. Patient denied any pain and A/O x3 during assessment. They mentioned that the patient has become forgetful lately. For example, buying items online and forgetting that she had done that. Mental Status Exam - Vital signs Last Vital Signs Temp 98.6 F 02/10/17 08:17 Pulse 72 02/10/17 08:17 Resp 18 02/10/17 08:17 BP 139/56 02/10/17 08:17 Pulse Ox 95 02/10/17 08:17 - Exam Orientation: time, place, person Mood: other ("I feel pretty good") Thought content: other (none) Thought Process: Intact Perceptions: none Speech: normal rate and pattern Concentration: other (intact) Motor activity: other (Lying in bed) Level of consciousness: alert Memory: Recent Intact Sleep Symptoms: None ('I slept 5 hours last night") Interaction: cooperative Mini mental status exam(if necessary): 24-30 Assessment and Plan Impression: 81 year old GEOVANY who originally presented to [facility] for a broken hip and subsequent surgery. We have been asked to evaluate for her memory , agitation, and depression. No episodes of agitation or behavior issues today or over night. Patient's son and his spouse at the bedside and had some concerns about the patient memory and her behavior at home. Recommendation/Plan: No change for this patient treatment at this time. Patient is awaiting SNF placement at this time. Currently, patient is appropriate for an 81 year old.
[2017-02-10 16:04] VITALS: BP 148/52
== END 2017-02-10 16:00 | DRG 467 ==
LOC: 3A 08:18 → 2B-SURG 12:47
PROVIDERS: ATTEND Internal Medicine
PROC: 0SR90J9 Replacement of Right Hip Joint with Synthetic Substitute, Cemented, Open Approach (ICD-10-PCS; principal; 2017-02-04)
PROC: 0SP90JZ Removal of Synthetic Substitute from Right Hip Joint, Open Approach (ICD-10-PCS; 2017-02-04)
DX: T84.030A Mechanical loosening of internal right hip prosthetic joint, initial encounter (principal); F02.81 Dementia in other diseases classified elsewhere, unspecified severity, with behavioral disturbance; F11.20 Opioid dependence, uncomplicated; G30.8 Other Alzheimer's disease; I10 Essential (primary) hypertension; F29 Unspecified psychosis not due to a substance or known physiological condition; Z88.2 Allergy status to sulfonamides; Z88.5 Allergy status to narcotic agent
CPT/HCPCS: 36415; 62324; 80048; 82962; 86850; 86900; 86901; 88300; 88302; 94760; C1776; G8978-GP; G8979-GP; J0690; J1170; J1650; J1885; J2250; J2270; J2370; J2405; J2704; J3370; J7030

== ENCOUNTER 2017-02-11 04:17 | Emergency (ER) | payer MEDICARE ==
[2017-02-11] MEDS ORDERED: MORPHINE ONE (05:07)
[2017-02-11] MEDS ORDERED: MORPHINE IV ONE (05:14)
--- NOTE | 2017-02-11 07:34 | Emergency Department Report ---
ED General Adult HPI - General Chief complaint: Pain General Stated complaint: RIGHT HIP PAIN Time Seen by Provider: 02/11/17 07:25 Source: patient, EMS Mode of arrival: Stretcher Limitations: No Limitations - History of Present Illness Initial comments: 81-year-old female presents to the emergency department complaining of right hip pain. Patient states that she had her hip replaced [address] Pedersen. She states she was doing well until 3 days ago when she began having increased pain. She reports she's been having some bleeding at the surgical site. Pain is worse with ambulation. She denies fever or other associated symptoms. There are no other complaints. -: Gradual, days(s) (3) Location: right, lower extremity Radiation: non-radiation Severity scale (0 -10): 8 Quality: sharp Consistency: constant Improves with: none Worsens with: movement Associated Symptoms: denies other symptoms Treatments Prior to Arrival: none - Related Data Home Medications Medication Instructions Recorded Confirmed Last Taken Acetaminophen [Tylenol] 650 mg PO Q6HR PRN 02/11/17 02/11/17 Unknown Docusate Sodium [Colace] 100 mg PO BID 02/11/17 02/11/17 Unknown Enoxaparin [Lovenox] 40 mg SQ QDAY 02/11/17 02/11/17 Unknown Multivit-Min/Iron Fum/Folic AC 1 each PO DAILY 02/11/17 02/11/17 Unknown [Ugzfy-[id number]-Pyusgejg Tablet] Pantoprazole [Protonix] 40 mg PO QDAY 02/11/17 02/11/17 Unknown Zolpidem [Ambien] 5 mg PO QHS PRN 02/11/17 02/11/17 Unknown traMADol [Ultram] 50 mg PO Q6HR PRN 02/11/17 02/11/17 Unknown Previous Rx's Medication Instructions Recorded Last Taken Type Celecoxib [celeBREX] 100 mg PO BID #60 capsule 09/25/16 01/07/17 Rx amLODIPine [Norvasc] 10 mg PO Q24H #60 tablet 09/25/16 02/02/17 Rx Lisinopril [Zestril TAB] 10 mg PO QDAY #30 tablet 02/07/17 Unknown Rx Allergies Allergy/AdvReac Type Severity Reaction Status Date / Time codeine Allergy Unknown Verified 02/11/17 04:25 Sulfa (Sulfonamide Allergy Unknown Verified 02/11/17 04:25 Antibiotics) ED Review of Systems ROS: Stated complaint: RIGHT HIP PAIN Other details as noted in HPI Comment: All other systems reviewed and negative Musculoskeletal: as per HPI, arthralgia ED Past Medical Hx - Past Medical History Previous Medical History?: Yes Hx Hypertension: Yes Hx Congestive Heart Failure: No Hx Diabetes: No Hx Renal Disease: No Hx Arthritis: Yes Hx Asthma: No Hx COPD: Yes Hx HIV: No Additional medical history: chronic back pain - Surgical History Past Surgical History?: Yes Hx Pacemaker: No Hx Appendectomy: Yes Additional Surgical History: Back surgery. R hip. Hysterectomy - Family History Family history: no significant - Social History Smoking Status: Never Smoker Substance Use Type: None - Medications Home Medications: Home Medications Medication Instructions Recorded Confirmed Last Taken Type Celecoxib [celeBREX] 100 mg PO BID #60 capsule 09/25/16 02/11/17 01/07/17 Rx amLODIPine [Norvasc] 10 mg PO Q24H #60 tablet 09/25/16 02/11/17 02/02/17 Rx Lisinopril [Zestril TAB] 10 mg PO QDAY #30 tablet 02/07/17 02/11/17 Unknown Rx Acetaminophen [Tylenol] 650 mg PO Q6HR PRN 02/11/17 02/11/17 Unknown History Docusate Sodium [Colace] 100 mg PO BID 02/11/17 02/11/17 Unknown History Enoxaparin [Lovenox] 40 mg SQ QDAY 02/11/17 02/11/17 Unknown History Multivit-Min/Iron Fum/Folic AC 1 each PO DAILY 02/11/17 02/11/17 Unknown History [Vqcsk-Htwotwn-Cfdxdsiy Tablet] Pantoprazole [Protonix] 40 mg PO QDAY 02/11/17 02/11/17 Unknown History Zolpidem [Ambien] 5 mg PO QHS PRN 02/11/17 02/11/17 Unknown History traMADol [Ultram] 50 mg PO Q6HR PRN 02/11/17 02/11/17 Unknown History ED Physical Exam - General Limitations: No Limitations General appearance: alert, in no apparent distress - Head Head exam: Present: atraumatic, normocephalic - Eye Eye exam: Present: normal appearance, PERRL, EOMI - ENT ENT exam: Present: normal exam, normal orophraynx, mucous membranes moist - Neck Neck exam: Present: normal inspection, full ROM. Absent: tenderness - Respiratory Respiratory exam: Present: normal lung sounds bilaterally. Absent: respiratory distress - Cardiovascular Cardiovascular Exam: Present: regular rate, normal rhythm, normal heart sounds - GI/Abdominal GI/Abdominal exam: Present: soft, normal bowel sounds. Absent: distended, tenderness - Extremities Exam Extremities exam: Present: full ROM, other (surgical incision site noted to the right lateral hip. [place] are intact. Dried blood is noted at various points along the incision site. No active bleeding is noted. There is no surrounding erythema or other drainage.). Absent: tenderness - Back Exam Back exam: Present: normal inspection, full ROM. Absent: tenderness - Neurological Exam Neurological exam: Present: alert, oriented X3. Absent: motor sensory deficit - Skin Skin exam: Present: warm, dry ED Course Vital Signs 02/11/17 02/11/17 02/11/17 04:32 04:55 07:09 Temperature 98.8 F Pulse Rate 71 Respiratory 18 18 Rate Blood Pressure Blood Pressure 130/53 [Left] O2 Sat by Pulse 99 100 100 Oximetry 02/11/17 02/11/17 02/11/17 07:10 07:13 07:15 Temperature Pulse Rate Respiratory Rate Blood Pressure 142/82 142/82 Blood Pressure [Left] O2 Sat by Pulse 98 95 97 Oximetry 02/11/17 02/11/17 02/11/17 07:17 07:19 07:21 Temperature Pulse Rate Respiratory Rate Blood Pressure 142/82 142/82 142/82 Blood Pressure [Left] O2 Sat by Pulse 95 96 96 Oximetry 02/11/17 02/11/17 02/11/17 07:23 07:25 07:27 Temperature Pulse Rate Respiratory Rate Blood Pressure 142/82 142/82 142/82 Blood Pressure [Left] O2 Sat by Pulse 96 97 97 Oximetry 02/11/17 02/11/17 02/11/17 07:29 07:31 07:33 Temperature Pulse Rate Respiratory Rate Blood Pressure 142/82 142/82 142/82 Blood Pressure [Left] O2 Sat by Pulse 97 98 97 Oximetry 02/11/17 02/11/17 02/11/17 07:35 07:37 07:38 Temperature Pulse Rate Respiratory Rate Blood Pressure 142/82 142/82 142/82 Blood Pressure [Left] O2 Sat by Pulse 97 97 98 Oximetry 02/11/17 09:14 Temperature Pulse Rate 78 Respiratory 18 Rate Blood Pressure Blood Pressure 153/40 [Left] O2 Sat by Pulse 96 Oximetry - Reevaluation(s) Reevaluation #1: 02/11/17 07:36 Review of old records show that the patient had her hip replacement on 2016. She was discharged from this facility yesterday to a local nursing facility. ED Medical Decision Making - Lab Data Result diagrams: 02/11/17 07:36 02/11/17 07:36 - Radiology Data Radiology results: report reviewed, image reviewed X-rays of the right hip reveal a stable prosthesis. - Medical Decision Making Lab and imaging results were reviewed. I have discussed the patient with Dr. Nichols, orthopedics, including the hemoglobin result. He states the patient may be discharged back to the rehabilitation facility since she is asymptomatic at this time. Patient has a history of chronic pain medication use. She has been receiving high doses of Percocet for many years. Due to her age and other comorbidities, the risks of administering narcotic pain medication outweigh the benefit per Dr. Nichols. The patient will be discharged back to the rehabilitation facility. - Differential Diagnosis postop pain, surgical site infection Critical care attestation.: If time is entered above; I have spent that time in minutes in the direct care of this critically ill patient, excluding procedure time. ED Disposition Clinical Impression: Chronic pain syndrome Disposition: DC/TX ANOTHER TYPE HEALTHCARE Is pt being admited?: No Condition: Stable Referrals: PRIMARY CAREMD [Primary Care Provider] - 3-5 Days Time of Disposition: 10:32
[2017-02-11 08:07] LABS: Anion Gap 17 mmol/L; Blood Urea Nitrogen 13 mg/dL (7-17); Calcium 8.4 mg/dL (8.4-10.2); Carbon Dioxide 22 mmol/L (22-30); Chloride 102.4 mmol/L (98-107); Glucose 116 mg/dL (65-100); Potassium 3.4 mmol/L (3.6-5.0); Sodium 138 mmol/L (137-145)
[2017-02-11 08:11] LABS: Basophils % (Auto) 0.7 % (0.0-1.8); Eosinophils % (Auto) 3.6 % (0.0-4.3); Hematocrit 21.8 % (30.3-42.9); Hemoglobin 6.8 gm/dl (10.1-14.3); Mean Corpuscular HGB Conc 31 % (30-34); Mean Corpuscular Volume 75 fl (79-97); Platelet Count 352 K/mm3 (140-440); Red Cell Distribution Width 17.2 % (13.2-15.2); White Blood Count 8.6 K/mm3 (4.5-11.0)
[2017-02-11 08:18] LABS: Mean Corpuscular Hemoglobin 24 pg (28-32)
--- NOTE | 2017-02-11 08:46 | XRay Report ---
Right hip 3 views: History: Postop pain. Findings: There is total hip replacement noted. Stable acetabular and femoral component. No fracture or dislocation. Impression: Stable total right hip
[2017-02-11 12:33] VITALS: BP 140/39
== END 2017-02-11 12:34 | disposition other institution (70) ==
LOC: ED 04:17
DX: G89.4 Chronic pain syndrome (principal); G89.28 Other chronic postprocedural pain; I10 Essential (primary) hypertension; M19.90 Unspecified osteoarthritis, unspecified site; J44.9 Chronic obstructive pulmonary disease, unspecified; Z90.710 Acquired absence of both cervix and uterus; Z88.2 Allergy status to sulfonamides; Z88.5 Allergy status to narcotic agent
CPT/HCPCS: 36415; 73502; 80048; 85025; 96374; 99284; J2270